=== PATIENT | female | born 1945 | race Caucasian/White ===

== ENCOUNTER 2017-04-06 03:26 | Inpatient (IN) | payer MEDICARE, MEDICAID ==
[2017-04-06] MEDS ORDERED: Propofol* 100 ML ONE (04:20)
--- NOTE | 2017-04-06 06:07 | HP ---
H&P (Free Text) History and Physical: PCP: unknown Date/Time of Evaluation: 04/06/2017 2950 CC: seizures HPI: Mrs Flores is a 71YO [facility] resident HX congenital mental retardation & seizure disorder who experienced 4 seizures prompting EMS to be called. She had a 5th seizure en route. Per [facility] provider report after the 4th seizure staff at [facility] were trying to get her to drink and take medications when she appeared to aspirate. Upon arrival to [facility] ED she was found to be in respiratory distress requiring intubation prompting a request for transfer for higher level of care. She was described as having pinpoint unreactive pupils and a CT brain WO was requested to evaluate for CVA/ICH as etiology for her seizure exacerbation. This was performed and was negative and she was accepted as a direct admit to ICU 10. Upon arrival she is intubated and sedated. She does not respond to examination, but appears comfortable. PMedHx seizure disorder congenital mental retardation HLD GERD otherwise unobtainable Medications: nursing to reconcile Allergies: unknown PSurgHx unobtainable SocHx: unobtainable FamHx: unobtainable ROS: as above, otherwise reviewed and all were negative Constitutional: NAD, normally developed, obese white female vitals: reviewed from [facility] HEENM: atraumatic; sclera/conjunctiva: non-icteric/clear; blephara: normal; fundi: unable to visualize; ; hearing: unable to assess; oropharynx: ET tube, mucosa moist Neck: soft tissue: non-tender; thyroid: normal Pulmonary: intubated, coarse bilaterally, fair to good aeration CV: RR/RR, normal S1S2, no carotid bruit, no jugular venous distention, 2+ B DP/ PT, 2+ BLE edema Abdominal: soft, non-distended, non-tender, no rebound/guarding/rigidity, normoactive bowel sounds, no hepatosplenomegaly or masses, no costovertebral angle tenderness Musculoskeletal: general: severe scoliosis with musculoskeletal contractures; gait: currently non-ambulatory Integumental: normal appearance and texture of exposed skin Neurological cranial nerves II: unable to assess visual early III/IV/: symmetric light reflex, loss of oculocephalic reflex, pupils 1mm & fixed V: absent corneal reflex, unable to assess facial sensation or mastication VII: intact facial symmetry VIII: unable to assess hearing IX/X: unable to assess palatal motion, gag reflex, or dysarthria XI: unable to assess shoulder shrug XII: unable to assess tongue protrusion or voice articulation motor unable to assess coordination unable to assess sensory unable to assess Psychiatric orientation: intubated & sedated affect: somnolent mood: acquiescent eye contact: absent content: absent insight: absent Testing: (Keenan) reviewed ECG, personally reviewed: (Keenan) NSR rate 96, no ischemia CT brain WO, not currently available for review: Conclusion: Stable exam. Left frontal lobe mass, presumable teratoma Impression: 71F HX mental retardation & seizure disorder presents with an exacerbation of seizures with 2nd aspiration pneumonitis DIAGNOSIS & PLAN Primary acute hypoxic respiratory failure 2nd aspiration pneumonitis : hold ABX and monitor temperature curve : check pCXR this AM : update labs : mechanical ventilation w/ adequate sedation : supportive care exacerbation of seizure disorder : EEG this AM to r/o status epilepticus : consider neurology consult in AM Secondary HLD : hold statin until taking PO GERD : OG famotidine BID Admission Rational: inpatient for ICU management of respiratory failure requiring intubation DVTp: SCDs Code Status: full HCP: [facility]
[2017-04-06] MEDS ORDERED: Acetaminophen SUPP* 650 MG SUPP PR PRN (06:56)
[2017-04-06] MEDS ORDERED: Ondansetron INJ* 2 MG/ML VIAL IV PRN (07:01)
[2017-04-06 08:02] LABS: Hematocrit 34 % (35-47); Hemoglobin 11.3 g/dl (12.0-16.0); Mean Corpuscular HGB Conc 33 g/dl (31-36); Mean Corpuscular Hemoglobin 29 pg (27-31); Mean Corpuscular Volume 87 fL (80-97); Mean Platelet Volume 8 um3 (7.4-10.4); Red Blood Count 3.92 10^6/ul (4.0-5.4); Red Cell Distribution Width 14 % (10.5-15); White Blood Count 11.5 10^3/ul (3.5-10.8)
--- NOTE | 2017-04-06 08:06 | RAD ---
INDICATION: Aspiration COMPARISON: November 04, 2003 TECHNIQUE: An AP portable view obtained at 0720 hours is submitted. FINDINGS: Bones/Soft Tissues: There are no acute bony findings. There is a prominent kyphoscoliosis. There is no endotracheal tube Logan Cardiomediastinal: The cardiomediastinal silhouette is unchanged. Lungs: Limited evaluation of lung bases due to scoliotic deformity. No appreciable interval change or definitive acute infiltrates. Pleura: There are no pleural effusions. Other: None IMPRESSION: LIMITED STUDY DUE TO SCOLIOTIC DEFORMITY. NO DEFINITE ACUTE INFILTRATES. ENDOTRACHEAL TUBE NEAR THE LOGAN
[2017-04-06 08:16] LABS: Albumin 3.4 g/dL (3.2-5.2); BUN/Creatinine Ratio 47.1 (8-20); Calcium 9.2 mg/dL (8.6-10.3); Direct Bilirubin 0.3 mg/dL (0.03-0.18); EGFR African American 244.1 (>60); EGFR Non-African American 189.8 (>60); Globulin 2.2 g/dL (2-4); Indirect Bilirubin 0.2 mg/dL (0.3-1.0); Potassium 3.9 mmol/L (3.5-5.0); Total Bilirubin 0.5 mg/dL (0.2-1.0); Total Protein 5.6 g/dL (6.4-8.9)
[2017-04-06 09:46] LABS: Urine Bacteria Absent (Absent); Urine Bilirubin Negative (Negative); Urine Glucose Negative (Negative); Urine Nitrite Negative (Negative)
[2017-04-06] MEDS: NS 0.9% 1000 ML* 1,000 ML IV SCH ×2 (09:53→17:11)
[2017-04-06] MEDS: Famotidine SUSP* 40 MG/5 ML ORAL.SUSP G TUBE SCH ×2 (10:00→20:20)
[2017-04-06] MEDS ORDERED: Fosphenytoin(*) 1,000 MG in NS 0.9% 50 ML* 50 ML IVPB ONE (11:00)
[2017-04-06] MEDS: Enoxaparin(*) 40 MG/0.4 ML SYR SUBCUT SCH (11:37)
--- NOTE | 2017-04-06 16:13 | PN ---
Critical Care Services: Developmentally disabled patient admitted last night for uncontrolled seizures and intubated because of aspiration. EEG this AM showed no evidence of seizure activity. Is now on IV fosphenytoin (phenytoin level in AM) and has had no seizures since admission. Vital Signs: Temp Pulse Resp BP SpO2 FiO2 98.8 F 89 18 108/58 100 40 Physical Exam: Gen:Unresponsive (on propofol) HEENT:Orotracheal tube in place Lungs: Coarse rhonchi Cardiac: Reg Rhythm. No murmurs Extremities: Warm. No cyanosis. 1+ edema of lower extremities. Fluid Balance (Past 24 Hours): 04/06/17 06:59 Intake Total 32 Output Total 175 Balance -143 Weight 109 lb Intake: IV Fluids 18 NS (0.9%) 18 IVPB NS (0.9%) Medicated IV 14 CC - Propofol/Diprivan 14 Output: Dave 175 Labs: 04/06/17 04/06/17 04/06/17 07:40 07:40 07:40 WBC 11.5 Hgb 11.3 Hct 34 Plt Count 398 INR (Anticoag Therapy) 0.94 Sodium 136 Potassium 3.9 Chloride 102 Carbon Dioxide 26 BUN 16 Creatinine 0.34 L Glucose 145 H Calcium 9.2 Total Bilirubin 0.50 Direct Bilirubin 0.30 H Indirect Bilirubin 0.2 L AST 38 ALT 23 Alkaline Phosphatase 114 H Total Protein 5.6 L Albumin 3.4 Nutrition: None Impression: Seizures not a problem since admission. Patient remains on ventilator, but has no evidence for pneumonia at present. Plan: Will attempt to wean from ventilator. Will also check serum phenytoin level. Patient is a DNR, per wishes of the patient's brother (the healthcare proxy), whom I spoke with over the phone today. Critical Care Time: 40 minutes (not including time spent with patient's brother and the staff from the [facility] facility).
[2017-04-06] MEDS: Fosphenytoin(*) 100 MG/2 ML VIAL IVPB SCH (17:50)
[2017-04-06] MEDS: Propofol* 100 ML IV SCH (17:58)
[2017-04-06] MEDS: Chlorhexidine MOUTHWASH 0.12%* 15 ML UDC TOPICAL SCH (22:09)
[2017-04-07] MEDS: Fosphenytoin(*) 100 MG/2 ML VIAL IVPB SCH ×3 (02:13→18:10)
[2017-04-07] MEDS: Chlorhexidine MOUTHWASH 0.12%* 15 ML UDC TOPICAL SCH ×3 (02:17→09:04)
[2017-04-07] MEDS: NS 0.9% 1000 ML* 1,000 ML IV SCH ×2 (02:17→08:56)
[2017-04-07] MEDS: Propofol* 100 ML IV SCH (04:34)
[2017-04-07 06:02] LABS: BUN/Creatinine Ratio 34.6 (8-20); Calcium 8.4 mg/dL (8.6-10.3); EGFR African American 332.7 (>60); EGFR Non-African American 258.7 (>60); Phenytoin 23.2 mcg/mL (10-20); Potassium 3.1 mmol/L (3.5-5.0)
--- NOTE | 2017-04-07 06:55 | EEG ---
ELECTROENCEPHALOGRAM REPORT: DATE OF STUDY: 04/06/17 - ROOM #ICU-10 REFERRING PHYSICIAN: Dr. Carbajal. LOCATION: She is in the intensive care unit. CLINICAL HISTORY: History of epilepsy and developmental delay. The patient had multiple seizures leading to intubation and ICU admission. MEDICATIONS: Include: 1. Propofol. 2. Zofran. 3. Pepcid. REPORT: This 16-channel EEG is remarkable for background rhythms consisting of diffuse suppression of rhythms in general with mainly theta and delta activity noted. Very low amplitude beta rhythms are seen intermittently. There is some variation in activity, but no actual burst suppression activity. There were no clinical events during the recording. There were no sleep stages recognized. There were no significant asymmetries. There were no focal or epileptiform discharges. CLINICAL IMPRESSION: Abnormal EEG due to generalized slowing and disorganization of background rhythms consisting of diffuse cerebral dysfunction , which could be from metabolic or toxic encephalopathy or anesthetic drug effect. There are no epileptiform features to this recording. [id number]/[facility] #: [id number] MTDD
--- NOTE | 2017-04-07 08:29 | RAD ---
INDICATION: Question pneumonia COMPARISON: April 06, 2017 TECHNIQUE: An AP portable view obtained at 0553 hours is submitted. FINDINGS: Bones/Soft Tissues: There are no acute bony findings. There is a prominent kyphoscoliosis. There is an endotracheal tube near the shree. A nasogastric tube passes through the mediastinum. Cardiomediastinal: The cardiomediastinal silhouette is unchanged. Lungs: No definitive infiltrates but evaluation is limited due to chest wall deformity. There is mild linear change on the left consistent with atelectasis Pleura: There are no definitive pleural effusions. Other: None IMPRESSION: LIMITED STUDY DUE TO CHEST WALL DEFORMITY. NO DEFINITE INFILTRATES OR INTERVAL CHANGES
[2017-04-07] MEDS: Famotidine SUSP* 40 MG/5 ML ORAL.SUSP G TUBE SCH (09:04)
[2017-04-07] MEDS ORDERED: Potassium Chloride LIQUID* 20 MEQ PACKET PO ONE (11:00)
[2017-04-07] MEDS: Enoxaparin(*) 40 MG/0.4 ML SYR SUBCUT SCH (13:33)
--- NOTE | 2017-04-07 14:10 | PN ---
Critical Care Services: Patient was weaned and extubated this AM and is now on O2 by mask and is breathing comfortably. No seizures since admission. Vital Signs: Temp Pulse Resp BP SpO2 FiO2 99.6 F 114 25 149/69 98 30 Physical Exam: Gen: Awake but does not follow commands. HEENT: oropharynx clear Lungs: Coarse rhonchi both sides. No crackles or wheezes. Abdomen: Extremities: No cyanosis. 1+edema Fluid Balance (Past 24 Hours): 04/07/17 06:59 Intake Total 3024.1 Output Total 1185 Balance +1839. Weight 116 lb Intake: IV Fluids 2558 NS (0.9%) 2512 NS to Maintain IV Patency 46 IVPB 261 NS (0.9%) 201 NS to Maintain IV Patency 60 Medicated IV 145.1 CC - Propofol/Diprivan 145.1 Oral 60 Output: NG Tube Drainage Amount 50 G Tube 10 Dave 1125 Labs: 04/07/17 05:34 Sodium 136 Potassium 3.1 Chloride 108 Carbon Dioxide 22 Anion Gap 6 BUN 9 Creatinine 0.26 Glucose 104 Calcium 8.4 Phenytoin 23.2 Studies: CXR: Severe spinal deformity. No pulmonary infiltrates. Nutrition: None Impression: Doing well post-extubation. Dilantin level is slightly supratherapeutic. Plan: 1. Place feeding tube and start tube feedings 2. Potassium replacement. 3. Repeat Dilantin level. 3. Patient is DNR and DNI, per wishes of her brother (healthcare proxy). Critical Care Time: 35 minutes (not including conversations with patient's brother and with patient's care givers).
--- NOTE | 2017-04-07 15:27 | RAD ---
HISTORY: Feeding tube placement COMPARISONS: April 07, 2017 VIEWS:1: Single frontal portable view of the chest at 3:04 PM. The patient is obliqued to the right.. FINDINGS: LINES AND TUBES: A feeding tube is noted. The tip is below the diaphragm, and is likely prepyloric though the position is indeterminate given the limitations of the study. CARDIOMEDIASTINAL SILHOUETTE: The cardiomediastinal silhouette is stable. PLEURA: The costophrenic angles are sharp. No pleural abnormalities are noted. LUNG PARENCHYMA: There is patchy alveolar opacification of the lung bases bilaterally. ABDOMEN: The upper abdomen is clear. There is no subphrenic gas. BONES AND SOFT TISSUES: There is a scoliotic curvature of the spine with associated chest wall deformity. IMPRESSION: 1. LIMITED STUDY SECONDARY TO SCOLIOTIC DEFORMITY. 2. LINES AND TUBES ABOVE. 3. LOW LUNG VOLUMES WITH BIBASILAR ATELECTASIS VERSUS CONSOLIDATION
[2017-04-07 18:13] LABS: Hematocrit 31 % (35-47); Hemoglobin 10.1 g/dl (12.0-16.0); Mean Corpuscular HGB Conc 33 g/dl (31-36); Mean Corpuscular Hemoglobin 30 pg (27-31); Mean Corpuscular Volume 89 fL (80-97); Mean Platelet Volume 8 um3 (7.4-10.4); Red Blood Count 3.44 10^6/ul (4.0-5.4); Red Cell Distribution Width 15 % (10.5-15); White Blood Count 11.9 10^3/ul (3.5-10.8)
[2017-04-08] MEDS: NS 0.9% 1000 ML* 1,000 ML IV SCH (00:22)
[2017-04-08] MEDS: Fosphenytoin(*) 100 MG/2 ML VIAL IVPB SCH ×2 (01:38→09:54)
[2017-04-08 06:41] LABS: BUN/Creatinine Ratio 32.1 (8-20); Calcium 8.6 mg/dL (8.6-10.3); EGFR African American 305.4 (>60); EGFR Non-African American 237.5 (>60); Potassium 3.7 mmol/L (3.5-5.0)
[2017-04-08] MEDS ORDERED: Morphine INJ* 2 MG/ML 1 ML SYRINGE IV ONE (11:15)
[2017-04-08] MEDS ORDERED: Morphine INJ* 2 MG/ML 1 ML SYRINGE IV PRN ×2 (11:45→12:29)
[2017-04-08] MEDS: Enoxaparin(*) 40 MG/0.4 ML SYR SUBCUT SCH (11:48)
[2017-04-08] MEDS ORDERED: fentaNYL* 50 MCG/ML 5 ML VIAL (250 MCG VIAL) ONE (15:15)
[2017-04-08] MEDS ORDERED: Etomidate* 2 MG/ML 20 ML VIAL (40 MG) ONE (15:15)
--- NOTE | 2017-04-08 16:14 | RAD ---
HISTORY: Endotracheal tube placement COMPARISONS: April 07, 2017 VIEWS:1: Single frontal portable view of the chest at 3:50 PM. The patient is obliqued to the right FINDINGS: LINES AND TUBES: An endotracheal tube is noted. The tip position appears just distal to the clavicles, though the shree is not well visualized secondary to technique. A right subclavian venous catheter is noted with the tip overlying the expected location of the superior vena cava. CARDIOMEDIASTINAL SILHOUETTE: The cardiomediastinal silhouette is normal for portable technique. PLEURA: The costophrenic angles are sharp. No pleural abnormalities are noted. LUNG PARENCHYMA: Evaluation is limited secondary. There is, and alveolar opacities in the lung bases bilaterally. ABDOMEN: The upper abdomen is clear. There is no subphrenic gas. BONES AND SOFT TISSUES: There is a scoliotic curvature of the spine IMPRESSION: 1. LIMITED EVALUATION SECONDARY TO SCOLIOTIC CURVATURE OF THE SPINE. 2. LINES AND TUBES ABOVE. 3. BIBASILAR ATELECTASIS VERSUS CONSOLIDATION
[2017-04-08] MEDS ORDERED: NS 0.9% 50 ML* 50 ML ONE (16:58)
[2017-04-08] MEDS ORDERED: Fosphenytoin(*) 100 MG/2 ML VIAL IVPB SCH (17:00)
[2017-04-08] MEDS ORDERED: Fosphenytoin(*) 100 MG in NS 0.9% 50 ML* 50 ML IVPB ONE (17:00)
--- NOTE | 2017-04-08 17:02 | PN ---
Critical Care Services: Patient displayed a problem protecting her airway from aspiration of mouth secretions, and she eventually developed progressive hypoxemia to the point where arterial O2 sats were in the low 80s on 100% O2 breathing. Patient was subsequently intubated and placed on mechanical ventilation, and O2 sats promptly increased into the high 90s. Vital Signs: Temp Pulse Resp BP SpO2 FiO2 99.0 F 89 16 99/61 100 90 Physical Exam: Gen:Unresponsive (on fentanyl sedation) HEENT: Orotracheal tube in place. Lungs: Coarse rhonchi. No crackles. Extremities: Warm. No cyanosis. 1+ edema both LEs. Fluid Balance (Past 24 Hours): 04/08/17 06:59 Intake Total 2488 Output Total 1750 Balance +738 Weight 121 lb Intake: IV Fluids 1634 NS (0.9%) 760 NS to Maintain IV Patency 874 IVPB 173 NS (0.9%) 118 NS to Maintain IV Patency 55 Medicated IV 21 CC - Propofol/Diprivan 21 Oral 0 Tube Feeding 600 Tube Feeding Flush Amount 60 Output: NG Tube Drainage Amount G Tube Urine Dave 1750 Other: Date of Last Bowel 04/08/17 Movement # Bowel Movements 1 Estimated Stool Amount Small Labs: 04/07/17 04/08/17 18:00 05:45 WBC 11.9 Hgb 10.1 Hct 31 Plt Count 333 Sodium 137 Potassium 3.7 Chloride 109 Carbon Dioxide 27 Anion Gap 1 L BUN 9 Creatinine 0.28 L Glucose 159 H Phenytoin 23.0 H Studies: None Nutrition: Tube feedings Impression: Recurrent aspiration leading to hypoxemic respiratory failure. This appears to be a chronic and irreversible problem. Plan: Continue ventilatory support for now. Will discuss end-of-life options with all parties involved. Critical Care Time: 40 minutes (not including time for intubation).
[2017-04-08] MEDS: Chlorhexidine MOUTHWASH 0.12%* 15 ML UDC TOPICAL SCH ×2 (17:13→21:18)
[2017-04-08] MEDS: Fosphenytoin(*) 100 MG in NS 0.9% 50 ML* 50 ML IVPB SCH (17:13)
[2017-04-08] MEDS: fentaNYL* 50 MCG/ML 2 ML VIAL (100 MCG VIAL) IV SLOW PU PRN (19:41)
[2017-04-09] MEDS: Chlorhexidine MOUTHWASH 0.12%* 15 ML UDC TOPICAL SCH ×6 (01:17→21:15)
[2017-04-09] MEDS: fentaNYL* 50 MCG/ML 2 ML VIAL (100 MCG VIAL) IV SLOW PU PRN ×3 (01:23→21:15)
--- NOTE | 2017-04-09 03:02 | PRO ---
PROCEDURE NOTE: DATE OF PROCEDURE: 04/08/17 PROCEDURE: Endotracheal intubation. This patient is a 71-year-old female who was admitted with intractable seizures and aspiration and was extubated yesterday. Because of suspected aspiration and progressive hypoxemia (O2 sats in the low 80s on 100% O2), reinsertion of the endotracheal tube was considered necessary. The patient was given etomidate and fentanyl premedication, and under videoscopic guidance, a size 7.5 endotracheal tube was inserted through the vocal cords and verification in the trachea was made by exhaled CO2 detection. The patient tolerated the procedure well. Postprocedure chest x-ray showed the tip of the tube close to the right mainstem bronchus, so the tube was withdrawn 2 cm and a repeat chest x -ray is pending. The patient was oxygenating well post intubation and was hemodynamically stable. DIAGNOSIS: Recurrent aspiration with hypoxemic respiratory failure. [id number]/[facility] #: [id number] MTDD
[2017-04-09] MEDS ORDERED: NS 0.9% 50 ML* 0 ML ONE (04:47)
[2017-04-09] MEDS: Fosphenytoin(*) 100 MG in NS 0.9% 50 ML* 50 ML IVPB SCH ×2 (05:12→16:41)
[2017-04-09] MEDS: Propofol* 100 ML IV SCH ×2 (08:03→21:28)
[2017-04-09] MEDS: Enoxaparin(*) 40 MG/0.4 ML SYR SUBCUT SCH (11:50)
[2017-04-09] MEDS: NS 0.9% 1000 ML* 1,000 ML IV SCH (16:41)
--- NOTE | 2017-04-09 17:47 | PN ---
Critical Care Services: Remains on ventilator and sedated with propofol. No new developments overnight Vital Signs: Temp Pulse Resp BP SpO2 FiO2 97.7 F 72 16 108/63 94 30 Physical Exam: Gen:Unresponsive (on propofol) Lungs:Scattered rhonchi. No crackles or wheezes. Abdomen:Not distended. Extremities: Warm. No cyanosis or edema. Fluid Balance (Past 24 Hours): 04/09/17 06:59 Intake Total 1788 Output Total 750 Balance +1038 Weight 128 lb Intake: IV Fluids 1273 NS (0.9%) 1273 NS to Maintain IV Patency IVPB 50 NS (0.9%) 50 NS to Maintain IV Patency Medicated IV CC - Propofol/Diprivan Oral Tube Feeding 415 Tube Feeding Flush Amount 50 Output: NG Tube Drainage Amount G Tube Urine 350 Dave 400 Other: Date of Last Bowel Movement # Bowel Movements Estimated Stool Amount Labs: None today. Studies: None today. Nutrition: None (Feeding tube had to be removed when patient was reintubated). Impression: Stable on ventilator, and it is unlikely that patient can be maintained without mechanical ventilation (because of the recurrent aspiration of mouth secretions into the lungs), Plan: Will have another meeting of all concerned about end-of-life decisions ( including the provision of artificial nutrition). In the meantime, we will provide general supportive care.
[2017-04-10] MEDS: Chlorhexidine MOUTHWASH 0.12%* 15 ML UDC TOPICAL SCH ×4 (01:14→12:52)
[2017-04-10] MEDS: fentaNYL* 50 MCG/ML 2 ML VIAL (100 MCG VIAL) IV SLOW PU PRN ×4 (01:26→23:35)
[2017-04-10] MEDS: Propofol* 100 ML IV SCH ×2 (02:18→10:22)
[2017-04-10] MEDS: Fosphenytoin(*) 100 MG in NS 0.9% 50 ML* 50 ML IVPB SCH ×2 (04:41→17:16)
[2017-04-10] MEDS: NS 0.9% 1000 ML* 1,000 ML IV SCH (10:22)
[2017-04-10] MEDS: Enoxaparin(*) 40 MG/0.4 ML SYR SUBCUT SCH (12:52)
--- NOTE | 2017-04-10 15:43 | PN ---
Critical Care Services: Patient weaned and extubated today. Oral secretions not a problem at present. Vital Signs: Temp Pulse Resp BP SpO2 FiO2 98.2 F 127 33 99/48 97 40 Physical Exam: Gen:Patient appears comfortable HEENT: Oral secretions minimal Lungs: Scattered rhonchi. No wheezes or crackles. Cardiac: Reg rhythm Extremities: Warm. No cyanosis. 1+edema of LEs Fluid Balance (Past 24 Hours): 04/10/17 06:59 Intake Total 2082 Output Total 1275 Balance +807 Weight 120 lb Intake: IV Fluids 1220 NS (0.9%) 1220 NS to Maintain IV Patency IVPB 107 NS (0.9%) 107 NS to Maintain IV Patency Medicated IV 290 CC - Propofol/Diprivan 290 Oral 0 Tube Feeding 415 Tube Feeding Flush Amount 50 Output: NG Tube Drainage Amount 50 Urine Dave 1225 Other: Date of Last Bowel 04/08/17 Movement # Bowel Movements 1 Estimated Stool Amount Small Labs: None today Studies: None today Nutrition: None Impression: Patient is currently doing well, but aspiration of mouth secretions is likely to occur in the future. Patient is now a DNI per agreement of healthcare proxies (brother, [employer], and [facility]). Plan: 1. Start oral feeding, if possible. 2. Frequent oral suctioning 3. General comfort measures.
[2017-04-10] MEDS ORDERED: Morphine INJ* 2 MG/ML 1 ML SYRINGE IV ONE (23:40)
[2017-04-10] MEDS ORDERED: Morphine INJ* 2 MG/ML 1 ML SYRINGE ONE (23:41)
[2017-04-11] MEDS ORDERED: Morphine INJ* 2 MG/ML 1 ML SYRINGE IV PRN (00:06)
[2017-04-11 03:09] VITALS: BP 98/45
--- NOTE | 2017-04-11 03:12 | PN ---
Progress Note - Progress Note Date of Service: 04/11/17 Note: Nursing called reporting Mrs Mark hernandez. Upon arrival, pupils are dilated & fixed, no cardiac sounds, no carotid pulse, & asystole on the monitor. Pronounced at 0255. Nursing had been in contact throughout the night due to persistent and progressive hypoxia. She had been extubated and made DNR/I. BiPap was not tried 2nd contraindicated by her obtundation and inability to protect her airway.
--- NOTE | 2017-04-11 05:44 | DS ---
Date of Admission: 04/06/2017 Date of Discharge: 04/11/2017 Discharge Diagnoses acute hypoxic respiratory failure aspiration pneumonitis, chronic congenital mental retardation seizure disorder HPI Mrs Flores is a 71YO [facility] resident HX congenital mental retardation & seizure disorder who experienced 4 seizures prompting EMS to be called. She had a 5th seizure en route. Per [facility] provider report after the 4th seizure staff at [facility] were trying to get her to drink and take medications when she appeared to aspirate. Upon arrival to [facility] ED she was found to be in respiratory distress requiring intubation prompting a request for transfer for higher level of care. She was described as having pinpoint unreactive pupils and a CT brain WO was requested to evaluate for CVA/ICH as etiology for her seizure exacerbation. This was performed and was negative and she was accepted as a direct admit to ICU 10. Upon arrival she is intubated and sedated. She does not respond to examination, but appears comfortable. Hospital Course Mrs Flores was admitted 04/06 intubated to the ICU. She was able to be extubated on the , but unfortunately continued to experience aspiration of oral secretions into the lungs causing recurrent hypoxic failure and requiring re-intubation on 04/08. Meetings were held between Urszula Lerma MD special forces warrant officer, [facility] , & the [facility] wherein determination of DNR/I code status was granted. She was able to be re-liberated from the ventilator again 04/10 and initially maintained well. However, as expected continued aspiration caused progressive hypoxic respiratory failure despite maximum effort to prevent by keeping NPO and supplying maximum oxygenation via face mask. BiPap was contraindicated 2nd obtundation and inability to protect her airway. She was able to be kept acceptably comfortable and at 0255 04/11/2017. Discharge Exam Time for Discharge: 45minutes
== END 2017-04-11 02:55 | disposition expired | DRG 208 ==
LOC: ICU 04:10
PROVIDERS: ADMIT Hospitalist; ATTEND Internal Medicine Critical Care Medicine
PROC: 5A1945Z Respiratory Ventilation, 24-96 Consecutive Hours (ICD-10-PCS; principal; 2017-04-06)
PROC: 0BH17EZ Insertion of Endotracheal Airway into Trachea, Via Natural or Artificial Opening (ICD-10-PCS; 2017-04-08)
DX: J96.01 Acute respiratory failure with hypoxia (principal); J69.0 Pneumonitis due to inhalation of food and vomit; G40.909 Epilepsy, unspecified, not intractable, without status epilepticus; F78 Other intellectual disabilities; Z66 Do not resuscitate; K21.9 Gastro-esophageal reflux disease without esophagitis
CPT/HCPCS: 36415; 71010; 80048; 80076; 80185; 81003; 81015; 83605; 85025; 85027; 85610; 87040; 87070; 87086; 87205; 87641; 93005; 94002; 94003; 94760; 95822; A9270-GY; J1650; J2270; J2704; J3010; Q2009